=== PATIENT | male | born 1970 ===

== ENCOUNTER 2019-12-22 11:21 | Emergency (ER) | payer SELFPAY ==
[~2019-12-22] VITALS: Ht 180.3 cm; Wt 99.8 kg
[2019-12-22] MEDS ORDERED: KETOROLAC 30 MG/ML VIAL IVP STA (11:40)
[2019-12-22] MEDS ORDERED: LACTATED RINGERS 1,000 ML IV ONE (11:40)
[2019-12-22 12:03] LABS: BASOPHILS % (AUTO) 0 % (0-10); EOSINOPHILS % (AUTO) 0 % (0-10); HEMATOCRIT 47 % (40-54); HEMOGLOBIN 15.7 G/DL (13.3-17.7); LYMPHOCYTES # (AUTO) 1.2 X 10^3 (1.0-4.0); LYMPHOCYTES % (AUTO) 30 % (12-44); MEAN CORPUSCULAR HEMOGLOBIN 28 PG (25-34); MEAN CORPUSCULAR HGB CONC 33 G/DL (32-36); MEAN CORPUSCULAR VOLUME 83 FL (80-99); MONOCYTES # (AUTO) 0.4 X 10^3 (0.0-1.0); MONOCYTES % (AUTO) 10 % (0-12); NEUTROPHILS # (AUTO) 2.4 X 10^3 (1.8-7.8); NEUTROPHILS % (AUTO) 60 % (42-75); PLATELET COUNT 192 10^3/uL (130-400); RED CELL DISTRIBUTION WIDTH 14.6 % (10.0-14.5); WHITE BLOOD COUNT 4.1 10^3/uL (4.3-11.0)
--- NOTE | 2019-12-22 12:04 | ED General ---
General Chief Complaint: Cough/Cold/Flu Symptoms Stated Complaint: COUGH;SOA;LOWER BACK PAIN;NAUSEA Nursing Triage Note: Pt amb to room #6 with c/o SOA, fever, cough, congestion, et body aches. Pt reports onset of symptoms to be 12/19/19 that have increased in severity. Pt denies chest pain. Pt states, "I coughed a couple black pieces the other day." Nursing Sepsis Screen: Possible Severe Sepsis Risk Source of Information: Patient Exam Limitations: No Limitations History of Present Illness Date Seen by Provider: Dec 22, 2019 Time Seen by Provider: 11:33 Initial Comments Here with report of fever, chills, cough and congestion associated with body aches and low back pain over the last 4-5 days. States the coughing fits, review hours. Started Wednesday with fever that turned to high fever and chills. These have persisted although her a little better. Now with increasing cough and congestion. Initially complained of some chest discomfort but actually describes it as crackling with breathing and pain with coughing. Timing/Duration: 4-5 Days Severity: Moderate Associated Systoms: Cough, Fever/Chills; No Nausea/Vomiting; Shortness of Air; No Weakness Allergies and Home Medications Allergies Coded Allergies: No Known Drug Allergies (Unverified , 12/22/19) Patient Home Medication List Home Medication List Reviewed: Yes Review of Systems Review of Systems Constitutional: see HPI, chills, fever, weakness EENTM: nose congestion, throat pain Respiratory: cough, wheezing Cardiovascular: see HPI Gastrointestinal: No abdominal pain; loss of appetite; No nausea, No vomiting Genitourinary: no symptoms reported Musculoskeletal: back pain, muscle pain Skin: no symptoms reported Psychiatric/Neurological: No Symptoms Reported All Other Systems Reviewed Negative Unless Noted: Yes Past Eranyyt-Kprouj-Upevyx Hx Past Med/Social Hx: Reviewed Nursing Past Med/Soc Hx Patient Social History Alcohol Use: Denies Use Recreational Drug Use: No Recent Foreign Travel: No Contact w/Someone Who Travel: No Recent Infectious Disease Expo: No Past Medical History Surgeries: No Respiratory: No Cardiac: No Neurological: No Gastrointestinal: No Musculoskeletal: No Endocrine: No HEENT: No Cancer: No Family Medical History Reviewed Nursing Family Hx No Pertinent Family Hx Physical Exam Vital Signs Vital Signs - First Documented 12/22/19 11:23 Temp 37.2 Pulse 96 Resp 20 B/P (MAP) 137/95 (109) Pulse Ox 97 O2 Delivery Room Air Capillary Refill : Less Than 3 Seconds Height, Weight, BMI Height: '" Weight: lbs. oz. kg; 30.00 BMI Method: General Appearance: No Apparent Distress, WD/WN HEENT: PERRL/EOMI, Pharyngeal Erythema, Other (moderate bilateral nasal congestion with clear rhinorrhea.) Neck: Non Tender, Supple Respiratory: Lungs Clear, Normal Breath Sounds Cardiovascular: No Murmur, Tachycardia Gastrointestinal: Non Tender, Soft Back: Normal Inspection, No CVA Tenderness, No Vertebral Tenderness Extremity: Normal Range of Motion, Non Tender Neurologic/Psychiatric: Alert, Oriented x3 Skin: Normal Color, Warm/Dry Progress/Results/Core Measures Suspected Sepsis Recent Fever Within 48 Hours: Yes Infection Criteria Present: Suspected New Infection New/Unexplained Altered Menta: No Sepsis Screen: Possible Severe Sepsis Risk SIRS Temperature: Pulse: 96 Respiratory Rate: 20 Laboratory Tests 12/22/19 11:57: White Blood Count 4.1L Blood Pressure 137 /95 Mean: 109 Laboratory Tests 12/22/19 11:57: Platelet Count 192 12/22/19 13:51: Creatinine 0.74, Total Bilirubin 0.5 Results/Orders Lab Results Laboratory Tests Test 12/22/19 11:57 12/22/19 13:51 Range/Units White Blood Count 4.1 L 4.3-11.0 10^3/uL Red Blood Count 5.67 4.35-5.85 10^6/uL Hemoglobin 15.7 13.3-17.7 G/DL Hematocrit 47 40-54 % Mean Corpuscular Volume 83 80-99 FL Mean Corpuscular Hemoglobin 28 25-34 PG Mean Corpuscular Hemoglobin Concent 33 32-36 G/DL Red Cell Distribution Width 14.6 H 10.0-14.5 % Platelet Count 192 130-400 10^3/uL Mean Platelet Volume 11.0 H 7.4-10.4 FL Neutrophils (%) (Auto) 60 42-75 % Lymphocytes (%) (Auto) 30 12-44 % Monocytes (%) (Auto) 10 0-12 % Eosinophils (%) (Auto) 0 0-10 % Basophils (%) (Auto) 0 0-10 % Neutrophils # (Auto) 2.4 1.8-7.8 X 10^3 Lymphocytes # (Auto) 1.2 1.0-4.0 X 10^3 Monocytes # (Auto) 0.4 0.0-1.0 X 10^3 Eosinophils # (Auto) 0.0 0.0-0.3 10^3/uL Basophils # (Auto) 0.0 0.0-0.1 10^3/uL Sodium Level 134 L 135-145 MMOL/L Potassium Level 3.6 3.6-5.0 MMOL/L Chloride Level 104 98-107 MMOL/L Carbon Dioxide Level 20 L 21-32 MMOL/L Anion Gap 10 5-14 MMOL/L Blood Urea Nitrogen 11 7-18 MG/DL Creatinine 0.74 0.60-1.30 MG/DL Estimat Glomerular Filtration Rate > 60 BUN/Creatinine Ratio 15 Glucose Level 116 H 70-105 MG/DL Calcium Level 8.1 L 8.5-10.1 MG/DL Corrected Calcium 8.3 L 8.5-10.1 MG/DL Total Bilirubin 0.5 0.1-1.0 MG/DL Aspartate Amino Transf (AST/SGOT) 90 H 5-34 U/L Alanine Aminotransferase (ALT/SGPT) 101 H 0-55 U/L Alkaline Phosphatase 100 40-136 U/L Troponin I < 0.028 <0.028 NG/ML C-Reactive Protein High Sensitivity 3.54 H 0.00-0.50 MG/DL Total Protein 6.4 6.4-8.2 GM/DL Albumin 3.7 3.2-4.5 GM/DL Micro Results Microbiology 12/22/19 Influenza Types A,B Antigen (KISHAN) - Final, Complete My Orders Orders - KRZYSZTOF GAYLE MD Cbc With Automated Diff (12/22/19 11:40) Comprehensive Metabolic Panel (12/22/19 11:40) Hs C Reactive Protein (12/22/19 11:40) Influenza A And B Antigens (12/22/19 11:40) Ed Iv/Invasive Line Start (12/22/19 11:40) Lactated Ringers (Lr 1000 Ml Iv Solution (12/22/19 11:40) Ketorolac Injection (Toradol Injection) (12/22/19 11:40) Chest Pa/Lat (2 View) (12/22/19 11:40) Ekg Tracing (12/22/19 11:40) Troponin I (2/21/20 11:40) Levofloxacin 750 Mg/150 Ml Iv (Levaquin (12/22/19 13:45) Ondansetron Injection (Zofran Injectio (12/22/19 15:00) Medications Given in ED Current Medications Medications Dose Ordered Sig/Rajat Route Start Time Stop Time Status Last Admin Dose Admin Lactated Ringer's 1,000 ml @ 0 mls/hr Q0M ONCE IV 12/22/19 11:40 12/22/19 11:43 DC 12/22/19 12:03 0 MLS/HR Levofloxacin/ Dextrose 150 ml @ 100 mls/hr ONCE ONCE IV 12/22/19 13:45 12/22/19 15:14 12/22/19 13:44 100 MLS/HR Vital Signs/I&O 12/22/19 12/22/19 11:23 11:30 Temp 37.2 Pulse 96 Resp 20 B/P (MAP) 137/95 (109) Pulse Ox 97 O2 Delivery Room Air Room Air Capillary Refill : Less Than 3 Seconds Blood Pressure Mean: 109 Progress Note : Progress Note Seen and evaluated. IV, labs, influenza screen, chest x-ray and LR 1 L bolus ordered. Toradol 30 mg IV ordered. Monitor patient. 1325: Chemistries are hemolyzed so we are repeating that. Left lower lobe pneumonia noted. I do think patient meets criteria for outpatient treatment. We will initiate levofloxacin 750 mg iv now. He'll also get albuterol MDI with teaching here as he has never used that before. Pending chemistries. 1455: Levaquin nearly complete. Zofran 8 mg IV for nausea. Labs reviewed. We will continue this as outpatient treatment and patient and family are comfortable with this. Patient has had 5 days of symptoms. We will forego Tamiflu at this point as he is outside of therapeutic window. ECG Initial ECG Impression Date: Dec 22, 2019 Initial ECG Impression Time: 11:30 Initial ECG Rate: 86 Initial ECG Rhythm: Normal Sinus Comment Sinus rhythm with left atrial abnormality. Left axis deviation. No evidence of ST elevation NM. No previous available for comparison. Interpreted by me. Diagnostic Imaging Diagonstic Imaging: Xray Plain Films/CT/US/NM/MRI: chest Comments NAME: DAPHNE SHAFFER O MED REC#: [id number] PT STATUS: REG ER : 1970 PHYSICIAN: KRZYSZTOF GAYLE MD ADMIT DATE: 12/22/19/ER Draft Date of Exam:12/22/19 CHEST PA/LAT (2 VIEW) INDICATION: Lower respiratory infection. PA and lateral chest. FINDINGS: There is some patchy infiltrate at the left lung base. Right lung is clear. There are no effusions. Heart size is normal. IMPRESSION: Left basilar infiltrate consistent with pneumonia. Dictated on workstation # [id number] Dict: 12/22/19 1311 Trans: 12/22/19 1315 [id number] Interpreted by: KRZYSZTOF RODRIGUEZ MD Electronically signed by: Departure Impression Primary Impression: Pneumonia Qualified Codes: J18.1 - Lobar pneumonia, unspecified organism Additional Impression: Influenza Disposition: HOME, SELF-CARE Condition: Stable Departure-Patient Inst. Decision time for Depature: 15:00 Patient Instructions: Pneumonia, Adult (DC), Flu, Adult (DC) Add. Discharge Instructions: All discharge instructions reviewed with patient and/or family. Voiced understanding. Follow-up with your Dr. in a few days for recheck. You may take ibuprofen 600 mg every 8 hours as needed for fever or pain. You may also take Tylenol/acetaminophen 1000 mg every 8 hours as needed for fever or pain. Drink plenty of fluids and get plenty of rest. Take medication as directed. Return for worse pain, persistent fever, vomiting, weakness, breathing problems or other concerns as needed. Scripts Levofloxacin (Levofloxacin) 750 Mg Tablet 750 MG PO DAILY, #7 TAB 0 Refills Prov: KRZYSZTOF GAYLE MD 12/22/19 KRZYSZTOF GAYLE MD Dec 22, 2019 12:04
--- NOTE | 2019-12-22 13:15 | Diagnostic Imaging Report ---
INDICATION: Lower respiratory infection. PA and lateral chest. FINDINGS: There is some patchy infiltrate at the left lung base. Right lung is clear. There are no effusions. Heart size is normal. IMPRESSION: Left basilar infiltrate consistent with pneumonia. Dictated by: Dictated on workstation # [id number]
[2019-12-22] MEDS ORDERED: LEVOFLOXACIN 750 MG/150 ML IV 150 ML IV ONE (13:45)
[2019-12-22 14:17] LABS: ALANINE AMINOTRANSFERASE 101 U/L (0-55); ALBUMIN 3.7 GM/DL (3.2-4.5); ALKALINE PHOSPHATASE 100 U/L (40-136); BILIRUBIN,TOTAL 0.5 MG/DL (0.1-1.0); BUN/CREATININE RATIO 15; CALCIUM 8.1 MG/DL (8.5-10.1); CARBON DIOXIDE 20 MMOL/L (21-32); CHLORIDE 104 MMOL/L (98-107); CREATININE SERUM 0.74 MG/DL (0.60-1.30); GFR ESTIMATED > 60; GLUCOSE 116 MG/DL (70-105); POTASSIUM 3.6 MMOL/L (3.6-5.0); SODIUM 134 MMOL/L (135-145); TOTAL PROTEIN 6.4 GM/DL (6.4-8.2)
[2019-12-22] MEDS ORDERED: ONDANSETRON 4 MG/2 ML (SDV) Z0FRAN ONE (14:55)
[2019-12-22] MEDS ORDERED: ONDANSETRON 4 MG/2 ML (SDV) Z0FRAN IVP ONE (15:00)
[2019-12-22] MEDS ORDERED: LEVO750T39 PO (15:08)
[2019-12-22 15:33] VITALS: BP 136/97
== END 2019-12-22 15:33 | disposition home or self-care (01) ==
LOC: ER 11:24
DX: J11.00 Influenza due to unidentified influenza virus with unspecified type of pneumonia (principal)
CPT/HCPCS: 36415; 71046; 80053; 84484; 85025; 86141; 87804; 93005